=== PATIENT | female | born 1940 | race Caucasian/White ===

== ENCOUNTER 2018-09-08 07:36 | Day surgery (SDC) | payer OTHER ==
[2018-09-07 13:01] VITALS: BMI 20.7
[2018-09-08 09:55] VITALS: TEMP 97.8
[2018-09-08 11:01] VITALS: BP 133/50; PULSE 67
--- NOTE | 2018-09-12 13:08 | PATH ---
Surgical Pathology Report Patient Name: SIERRA FLORES [facility]. Rec. #: [id number] /Age/Gender: 1940 (Age: 77) / F Account: [id number] Location: [facility]-ENDOSCOPY Taken: 09/08/2018 Received: 09/08/2018 Reported: 09/11/2018 Physicians: Sterling Payan M.D. Specimen(s) Received SPLENIC FLEXURE BIOPSY Clinical History Adenoma surveillance Postoperative diagnosis: Diverticulosis, splenic flexure polyp Final Diagnosis COLON, SPLENIC FLEXURE POLYP, BIOPSY: TUBULAR ADENOMA. Electronically Signed Nadia Gómez M.D. Gross Description Received in formalin, labeled "splenic flexure polyp" are 2 [place], irregular portions of soft tissue measuring 0.2 and 0.3 cm. in greatest dimension. The specimens are submitted in toto in one cassette. MLSZ/09/08/2018 sanml/09/08/2018
== END 2018-09-08 11:01 | disposition home or self-care (01) ==
LOC: JASU-ENDO 07:36
PROVIDERS: ATTEND Internal Medicine Gastroenterology
PROC: 0DBL8ZX Excision of Transverse Colon, Via Natural or Artificial Opening Endoscopic, Diagnostic (ICD-10-PCS; principal; 2018-09-08 08:45)
DX: Z12.11 Encounter for screening for malignant neoplasm of colon (principal); Z86.010 Personal history of colon polyps; K64.8 Other hemorrhoids; K57.30 Diverticulosis of large intestine without perforation or abscess without bleeding; K63.89 Other specified diseases of intestine; D12.3 Benign neoplasm of transverse colon
CPT/HCPCS: 82962; 88305-TC

== ENCOUNTER 2020-07-23 08:09 | Day surgery (SDC) | payer OTHER ==
[2020-07-21 11:56] VITALS: BMI 20.9
[2020-07-23 09:07] VITALS: TEMP 98
[2020-07-23] MEDS ORDERED: ROPIVACAINE HCL 0.5% 30ML VIAL ONE (10:29)
[2020-07-23] MEDS ORDERED: MIDAZOLAM HCL 2 MG/2 ML SINGLE DOSE VIAL ONE (10:29)
[2020-07-23] MEDS ORDERED: PROPOFOL 20 ML ONE (10:48)
[2020-07-23] MEDS ORDERED: ONDANSETRON 4 MG/2 ML VIAL ONE (10:49)
[2020-07-23] MEDS ORDERED: KETOROLAC TROMETHAMINE 30 MG/1 ML VIAL ONE (10:49)
[2020-07-23] MEDS ORDERED: DEXAMETHASONE SOD PHOSPHATE 4 MG/1 ML VIAL ONE (10:49)
[2020-07-23] MEDS ORDERED: ceFAZolin SODIUM 1 GM VIAL ONE (10:49)
[2020-07-23] MEDS ORDERED: CLINDAMYCIN PHOSPHATE 600 MG/4 ML VIAL ONE (11:19)
[2020-07-23 13:48] VITALS: BP 120/68; PULSE 72
== END 2020-07-23 13:51 | disposition home or self-care (01) ==
LOC: FASU 08:09
PROVIDERS: ATTEND Orthopaedic Surgery Hand Surgery
PROC: 0LX60ZZ Transfer Left Lower Arm and Wrist Tendon, Open Approach (ICD-10-PCS; principal; 2020-07-23 11:09)
DX: M18.12 Unilateral primary osteoarthritis of first carpometacarpal joint, left hand (principal)
CPT/HCPCS: 25310; 25447; C1713; 94760

== ENCOUNTER → 2020-12-29 | Day surgery (SDC) | payer OTHER | END | disposition home or self-care (01) | LOC: JRADIR 10:25 | PROVIDERS: ATTEND Internal Medicine Endocrinology, Diabetes & Metabolism | PROC: 0G9K3ZX Drainage of Thyroid Gland, Percutaneous Approach, Diagnostic (ICD-10-PCS; principal; 2020-12-29) | DX: E04.1 Nontoxic single thyroid nodule (principal) | CPT/HCPCS: 10005; 76942 ==

== ENCOUNTER → 2021-01-06 | Day surgery (SDC) | payer OTHER | END | disposition home or self-care (01) | LOC: JRADIR 11:17 | PROVIDERS: ATTEND Internal Medicine Endocrinology, Diabetes & Metabolism | PROC: 0G9G3ZX Drainage of Left Thyroid Gland Lobe, Percutaneous Approach, Diagnostic (ICD-10-PCS; principal; 2021-01-06) | DX: E04.1 Nontoxic single thyroid nodule (principal) | CPT/HCPCS: 10005; 76942 ==

== ENCOUNTER 2021-12-07 10:30 | Emergency (ER) | payer OTHER ==
[2021-12-07 11:09] VITALS: BP 157/70; PULSE 68; RESP 18; TEMP 98; BMI 18.8
[2021-12-07] MEDS ORDERED: ACETAMINOPHEN 325 MG TABLET (FP) PO ONE (11:20)
[2021-12-07] MEDS ORDERED: ACETAMINOPHEN 325 MG TABLET (FP) ONE (11:26)
[2021-12-07] MEDS ORDERED: LIDOCAINE 5% TOPICAL PATCH TP ONE (12:01)
[2021-12-07] MEDS ORDERED: CYCLOBENZAPRINE HCL 10 MG TABLET (FP) PO ONE (12:01)
[2021-12-07] MEDS ORDERED: CYCLOBENZAPRINE HCL 5 MG TABLET ONE (12:05)
[2021-12-07] MEDS ORDERED: LIDOCAINE 5% TOPICAL PATCH ONE (12:05)
[2021-12-07] MEDS ORDERED: LIDOCAINE PATCH REMOVAL MC SCH (22:00)
== END 2021-12-07 12:15 | disposition home or self-care (01) ==
LOC: FER 10:30
DX: M54.50 Low back pain, unspecified (principal)
CPT/HCPCS: 72100-TC-FY; 72170-TC-FY; 99284-25

== ENCOUNTER 2022-03-15 04:17 | Day surgery (SDC) | payer OTHER ==
[2022-03-15 09:11] VITALS: BMI 19.5
[2022-03-15] MEDS ORDERED: ALBUTEROL SO4 HFA INHALER IH ONE (10:50)
[2022-03-15 11:42] VITALS: TEMP 98.1
[2022-03-15 12:23] VITALS: BP 114/49; PULSE 75; RESP 27
== END 2022-03-15 12:50 | disposition home or self-care (01) ==
LOC: JASU-ENDO 04:17
PROVIDERS: ATTEND Internal Medicine Gastroenterology
PROC: 0DBH8ZX Excision of Cecum, Via Natural or Artificial Opening Endoscopic, Diagnostic (ICD-10-PCS; 2022-03-15)
PROC: 0DB98ZX Excision of Duodenum, Via Natural or Artificial Opening Endoscopic, Diagnostic (ICD-10-PCS; 2022-03-15)
PROC: 0DB78ZX Excision of Stomach, Pylorus, Via Natural or Artificial Opening Endoscopic, Diagnostic (ICD-10-PCS; 2022-03-15)
PROC: 0DB68ZX Excision of Stomach, Via Natural or Artificial Opening Endoscopic, Diagnostic (ICD-10-PCS; 2022-03-15)
PROC: 0D5M8ZZ Destruction of Descending Colon, Via Natural or Artificial Opening Endoscopic (ICD-10-PCS; principal; 2022-03-15 10:00)
DX: Z12.11 Encounter for screening for malignant neoplasm of colon (principal); D50.9 Iron deficiency anemia, unspecified; D12.0 Benign neoplasm of cecum; D12.4 Benign neoplasm of descending colon; K64.8 Other hemorrhoids; K57.30 Diverticulosis of large intestine without perforation or abscess without bleeding; Z86.010 Personal history of colon polyps; K31.7 Polyp of stomach and duodenum; K44.9 Diaphragmatic hernia without obstruction or gangrene; K22.2 Esophageal obstruction; K29.50 Unspecified chronic gastritis without bleeding
CPT/HCPCS: 88305-TC; 88342-TC

== ENCOUNTER 2023-05-13 11:24 | Emergency (ER) | payer OTHER ==
[2023-05-13 12:18] VITALS: BP 154/73; PULSE 82; RESP 18; TEMP 98.3; BMI 19.7
[2023-05-13 13:23] LABS: HEMATOCRIT 36.1 % (32.4-45.2); HEMOGLOBIN 11.9 G/dL (10.7-15.3); MCHC 33.1 g/dl (32.0-36.0); MEAN CELL VOLUME 90.6 fl (80-96); MEAN PLT VOLUME 8.1 fl (7.5-11.1); PLATELET COUNT 179.1 10^3/uL (134-434); RBC 3.98 10^6/uL (3.60-5.2); RDW 14.3 % (11.6-15.6); WHITE BLOOD COUNT 15.8 10^3/uL (4.0-10.8)
[2023-05-13 13:31] LABS: ALBUMIN 4.4 g/dl (3.4-5.0); CALCIUM 9.4 mg/dl (8.5-10.1); CREATININE 0.7 mg/dl (0.6-1.3); POTASSIUM 4.1 mmol/L (3.5-5.1); TOT PROT 6.4 g/dl (6.4-8.2)
[2023-05-13 15:35] LABS: PLATELET ESTIMATE ADEQUATE
== END 2023-05-13 15:22 | disposition home or self-care (01) ==
LOC: FER 11:24
DX: K64.9 Unspecified hemorrhoids (principal); K62.89 Other specified diseases of anus and rectum
CPT/HCPCS: 36415; 74174-TC; 80053; 85027; 99284-25